=== PATIENT | male | born 1995 | race Caucasian/White ===

== ENCOUNTER 2017-05-10 09:03 | Emergency (ER) | payer MEDICAID ==
[~2017-05-10] VITALS: Ht 165.1 cm; Wt 84.5 kg
[2017-05-10 09:06] VITALS: Ht 165.1 cm; Wt 84.5 kg
[2017-05-10] MEDS ORDERED: HYDR30CR75 PR (11:00)
--- NOTE | 2017-05-10 15:01 | ERD ---
ER Documentation Chief Complaint Chief Complaint ABSCESS, ITCHY AND PAIN @ RECTAL AREA X 2 WEEKS HPI This is a 21-year-old male presenting to emerge department for itching and pain to rectal area 2 weeks. Patient states he has had pain while having bowel movements and mild burning and itching to rectal area after bowel movements. Patient denies any constipation or diarrhea. Patient states he feels on the inside of his rectum. Small lesions no fevers or chills. Denies melena. No black or tarry stools. No vomiting. No abdominal pain. Patient states he notices some bright red blood occasionally when he wipes after a bowel movement. Has not tried any medications for this. ROS All systems reviewed and are negative except as per history of present illness. Medications Home Meds Active Scripts Hydrocortisone Acetate* (Anusol-HC*) 30 Gm Cream.gm., 1 APPLIC FL BID, #1 TUB Prov:POLY DONALDSON NP 05/10/17 PMhx/Soc Medical and Surgical Hx: pt denies Medical Hx, pt denies Surgical Hx Hx Alcohol Use: No Hx Substance Use: No Hx Tobacco Use: No Smoking Status: Never smoker Physical Exam Vitals Vital Signs Date Time Temp Pulse Resp B/P Pulse Ox O2 Delivery O2 Flow Rate FiO2 05/10/17 09:06 98.4 72 19 143/94 100 Physical Exam Const: Alert, not ill-appearing Head: Atraumatic Abd: Soft, non tender, non distended. Normal bowel sounds Skin: No petechiae or rashes Back: No midline or flank tenderness Ext: No cyanosis, or edema Neur: Awake and alert Psych: Normal Mood and Affect : 3 small lesions to 7 o clock region of rectum palpated. tenderness to palpation. Procedures/MDM MDM: This is a 21-year-old male presenting to emergency department for pain and itching to rectal area 2 weeks. Rectal exam reveals 3 less than 1 mm lesions to 7:00 region of rectum with palpation. No gross occult blood noted after GABRIELLE. Patient is afebrile vital signs are stable. Patient is alert and well appearing. Patient has good follow-up and instructed patient to follow-up with primary care provider in the next week for reassessment and additional management. Diagnosis is hemorrhoids. Low suspicion for rectal abscess. Patient is appropriate for outpatient management and will be given Anusol HC cream. Instructed patient to follow-up with primary care provider in the next 2 -3 days for reassessment and additional management. Return to ED for any high fever, chest pain, difficulty breathing, shortness breath, wheezing, vomiting, diarrhea, abdominal pain or any new or worsening symptoms. Patient verbalizes understanding. All questions answered at discharge. Disclaimer: Inadvertent spelling and grammatical errors are likely due to EHR/ dictation software use and do not reflect on the overall quality of patient care. Also, please note that the electronic time recorded on this note does not necessarily reflect the actual time of the patient encounter. Departure Diagnosis: Primary Impression: Rectal pain Condition: Stable Patient Instructions: Diagnosing Hemorrhoids, Hemorrhoids, Hydrocortisone Rectal cream Referrals: [facility] YOU HAVE RECEIVED A MEDICAL SCREENING EXAM AND THE RESULTS INDICATE THAT YOU DO NOT HAVE A CONDITION THAT REQUIRES URGENT TREATMENT IN THE EMERGENCY DEPARTMENT. FURTHER EVALUATION AND TREATMENT OF YOUR CONDITION CAN WAIT UNTIL YOU ARE SEEN IN YOUR DOCTORS OFFICE WITHIN THE NEXT 1-2 DAYS. IT IS YOUR RESPONSIBILITY TO MAKE AN APPOINTMENT FOR FOLOW-UP CARE. IF YOU HAVE A PRIMARY DOCTOR --you should call your primary doctor and schedule an appointment IF YOU DO NOT HAVE A PRIMARY DOCTOR YOU CAN CALL OUR PHYSICIAN REFERRAL HOTLINE AT IF YOU CAN NOT AFFORD TO SEE A PHYSICIAN YOU CAN CHOSE FROM THE FOLLOWING [facility] [address] [facility]. [facility] [address] [facility] [facility] [address] [facility] [address] [facility]. [facility] [address] [facility]. [facility]. [address] [facility]. [facility] YOU HAVE RECEIVED A MEDICAL SCREENING EXAM AND THE RESULTS INDICATE THAT YOU DO NOT HAVE A CONDITION THAT REQUIRES URGENT TREATMENT IN THE EMERGENCY DEPARTMENT. FURTHER EVALUATION AND TREATMENT OF YOUR CONDITION CAN WAIT UNTIL YOU ARE SEEN IN YOUR DOCTORS OFFICE WITHIN THE NEXT 1-2 DAYS. IT IS YOUR RESPONSIBILITY TO MAKE AN APPOINTMENT FOR FOLOW-UP CARE. IF YOU HAVE A PRIMARY DOCTOR --you should call your primary doctor and schedule and appointment IF YOU DO NOT HAVE A PRIMARY DOCTOR YOU CAN CALL OUR PHYSICIAN REFERRAL HOTLINE AT . IF YOU CAN NOT AFFORD TO SEE A PHYSICIAN YOU CAN CHOSE FROM THE FOLLOWING [facility], [facility] INSTITUTIONS: [facility] [address] [place] [address] [facility] [address] [place] [address] [facility] [address] [place] [address] Additional Instructions: Return to ED in 2 days for recheck. Call your primary care doctor TOMORROW for an appointment during the next 2-3 days.See the doctor sooner or return here if your condition worsens before your appointment time. Return to ED for any high fever, chest pain, difficulty breathing, shortness breath, wheezing, vomiting, diarrhea, abdominal pain or any new or worsening symptoms. POLY DONALDSON NP May 10, 2017 15:01
== END 2017-05-10 11:39 | disposition home or self-care (01) ==
LOC: FTE 09:03
DX: K62.89 Other specified diseases of anus and rectum (principal)
CPT/HCPCS: 99283